=== PATIENT | male | born 1960 | race Caucasian/White ===

== ENCOUNTER 2016-12-24 05:38 | Observation (INO) | payer OTHER ==
--- NOTE | ~2016-12-24 | DS ---
Unit #: [id number] #: [id number] Patient: QUEENIE FAIR JR [id number] [address] [place], [place] [address] [id number] MR#: [id number] NAME: QUEENIE FAIR JR ROOM: 310 Age: 56 Sex: M Admission Date: 12/24/2016 : 1960 Discharge Date: 12/25/2016 Attending Physician: Angelika Bustamante M.D. Primary Care Physician: Zainab Tomas M.D. DISCHARGE SUMMARY DISCHARGE DIAGNOSES 1. Chest pain. 2. Hypertension. 3. Hyperlipidemia. 4. Dizziness. 5. Alcohol use. 6. Reformed tobaccoism. 7. Obesity with BMI greater than 40. 8. Possible obstructive sleep apnea. PROCEDURES PERFORMED The patient underwent an exercise Cardiolite stress test which showed no ST-T wave changes. In recovery the patient's blood pressure did drop to 68/30. Discussed with Dr. Chaudhary and the patient's stress test showed no ischemia. Radiology, two-dimensional echocardiogram showed left ventricle size normal. Mild concentric left ventricular hypertrophy. Ejection fraction is 60%, grade 1 diastolic dysfunction, RSVP less than 35 mmHg, mild tricuspid regurgitation. The patient was placed in Trendelenburg and given IV fluids. Blood pressure returned up to 112/75. The patient is a 56-year-old man who does not have a primary care provider or a director appointment. He reports that he last saw his primary care physician three years ago and was told that he did not have any issues. The patient reports that he has been having intermittent pain in his left shoulder and neck for the past two days and occasionally the pain would radiate to his midsternal chest. The pain was a 4 out of 5. The pain can occur with rest and activity. The patient also reported some mild dizziness. He denied diaphoresis, palpitations or shortness of breath. In the emergency department the patient was found to have a blood pressure of 178/104. His EKG was unremarkable. His troponin trend was negative. The patient underwent an exercise Cardiolite stress test which showed no ischemia. He did become hypotensive in recovery, likely secondary to dehydration. The patient was given IV fluids and his blood pressure improved. The patient had a two-dimensional echocardiogram done, which showed an ejection fraction of 60%. I have discussed this case with Dr. Chaudhary and he is agreeable. The patient is stable for discharge. Unit #: [id number] #: [id number] Patient: QUEENIE FAIR JR FOLLOWUP/INSTRUCTIONS 1. The patient is to establish with a primary care doctor and follow up in one to two weeks for possible sleep study. 2. The patient is to follow up with Dr. Bustamante in two to three weeks regarding his hypertension. 3. Healthy heart diet. 4. Activity as tolerated. 5. The patient may return to work on , 12/27/2016. No restrictions. 6. Discharge home. 7. Cardiac rehab to see. DISCHARGE MEDICATIONS 1. Norvasc 10 mg p.o. daily. 2. Lipitor 20 mg p.o. daily. 3. Lisinopril 10 mg p.o. b.i.d. 4. Aspirin 81 mg p.o. daily. Dictated by... Tova Camacho A.P.R.N. AM/pasquale TD: 12/25/2016 12:27 JOB #: [id number] DISCHARGE SUMMARY Page 1 of 1 X Tova Camacho APRN X DISCHARGE SUMMARY
--- NOTE | ~2016-12-24 | ST ---
Unit #: [id number] #: [id number] Patient: QUEENIE FAIR JR [id number] [address] [address] [id number] I MR#: [id number] NAME: QUEENIE FAIR JR : 1960 SEX: M STUDY DATE/TIME: 12/25/2016 UNIT: C3A PCU ROOM: 310 STUDY DESCRIPTION: Stress Cardiolite Attending Physician: Angelika Bustamante M.D. Primary Care Physician: Zainab Tomas M.D. CARDIOLOGY REPORT EXAM EKG, as well as nuclear part of the test. DESCRIPTION Patient's baseline heart rate is 68 BPM, blood pressure 143/96. Patient exercised for 9 minutes and 42 seconds, achieved peak heart rate of 117 BPM. Blood pressure is 170/92 but in recovery patient's blood pressure was low 70/38. Treated appropriately patient felt dizzy. The patient's baseline EKG showing normal sinus rhythm, normal EKG. During exercise recovery, acute PVCs but no ST-T shift. Patient also received 11.46 mCi of Cardiolite at rest and 56.0 mCi of Cardiolite during stress. Both sets of images were compared. There was fairly uniform uptake of radiotracer. No defect was noted. Gated SPECT scan done, which showed no ejection fraction of 59%. INTERPRETATION OF TEST 1. Good exercise tolerance. 2. Patient's blood pressure dropping during recovery, that is probably related to dehydration. 3. EKG part of the test negative for stress induced ischemia. 4. Nuclear part of the test negative for myocardial ischemia. 5. Gated SPECT scan shows normal LV size and function. Dictated by... Brandon Castorena/dani TD: 12/25/2016 12:16 JOB #: [id number] Unit #: [id number] #: [id number] Patient: QUEENIE FAIR JR CARDIOLOGY REPORT Page 1 of 1 X Jamal Chaudhary MD CARDIOLOGY REPORT
--- NOTE | ~2016-12-24 | CR72 ---
[facility] A Service of [facility] RADIOLOGY TEXT RESULTS PATIENT: QUEENIE FAIR JR LOCATION: [facility] : 60 UNIT #: [id number] AGE: [address]: JOSELIN BLEVINS MD SEX: M ORDER DR: [id number] [facility] [address] [place], [place] [address] [id number] E MR#: [id number] Acc #: [id number] NAME: QUEENIE FAIR : 1960 SEX: M STUDY DATE/TIME: 12/24/2016 6:20 UNIT: [facility] ROOM: STUDY DESCRIPTION: CR Chest Single View Portable Attending Physician: Noe Bazan M.D. Ordering Physician: Noe Bazan M.D. Primary Care Physician: Zainab Tomas M.D. MEDICAL IMAGING REPORT This report is preliminary unless electronic signature is present EXAM Chest x-ray, single-view portable. HISTORY Short of air, chest pain, arm pain for 2 days. COMMENT Single, frontal, portable view of the chest timed 6:20 on 12/24/2016 compared to a study from 10:27, 05/24/2008. Cardiac silhouette size is normal. No acute-appearing parenchymal infiltrate, acute congestive failure, pleural effusion, or pneumothorax. IMPRESSION No active disease. Dictated by... Yissel Landaverde M.D. THIS IS AN ELECTRONICALLY VERIFIED REPORT Yissel Landaverde M.D. at 12/24/2016 3:25 PM JOSE/mike TD: 12/24/2016 10:10 JOB #: [id number] MEDICAL IMAGING REPORT Page 1 of 1 COPY
--- NOTE | ~2016-12-24 | HP ---
Unit #: [id number] #: [id number] Patient: QUEENIE FAIR JR [id number] [address] [place], [place] [address] [id number] E MR#: [id number] NAME: QUEENIE FAIR ROOM: Age: 56 Sex: M Admission Date: 12/24/2016 : 1960 Attending Physician: Noe Bazan M.D. Primary Care Physician: Zainab Tomas M.D. HISTORY AND PHYSICAL CHIEF COMPLAINT Chest pain. 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 The patient reports that he last saw a primary care doctor three years ago and was told that he did not have any problem. He does report that three years ago he did undergo a colonoscopy which was essentially normal, only showing mild diverticulitis. The patient reports that he has been having intermittent pains for the past two days. Sometimes the pain starts in his left shoulder and will radiate to his left neck and to his mid sternal chest. He does rate this pain as a 4 out of 5. This pain can occur with rest and activity. The patient does report that he has been having some dizziness. The patient denies diaphoresis, palpitations or shortness of breath. In the emergency department, the patient was found to have a blood pressure of 178/104. His EKG was unremarkable and his initial troponin was negative. The patient is being admitted for further workup. PAST MEDICAL HISTORY None. PAST SURGICAL HISTORY 1. Vasectomy. 2. Colonoscopy there years ago which is reportedly normal, only showing mild diverticulitis. ALLERGIES No known allergies. HOME MEDICATIONS None. 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 He does report that he does take the stairs daily. He denies illicit drug abuse. The patient states that he quit smoking cigars approximately 12 years ago. He does endorse alcohol use on the weekends and states that he had 18 to 20 beers this past weekend. FAMILY HISTORY The patient reports that his mother had coronary artery disease and Unit #: [id number] #: [id number] Patient: QUEENIE FAIR JR ultimately had to undergo a valve surgery. He does endorse that his mother and father were smokers. His dad also had congestive heart failure. REVIEW OF SYSTEMS GENERAL: The patient is alert, awake, in no acute distress. VITAL SIGNS: Temperature 97.9, heart rate 65, respirations 14, blood pressure 166/92. He is oxygenating 100%. He is 280 pounds with a BMI of 40. HEENT: Head is atraumatic, normocephalic. Pupils equal, round, reactive. Extraocular movements are intact. No drainage from ears or nose. NECK: Supple. Trachea is midline. Normal carotid upstrokes. No JVD. CHEST: Lungs are clear to auscultation bilaterally. No wheezes, rales or rhonchi. CARDIOVASCULAR: S1, S2. Regular rate and rhythm. No murmurs, rubs or gallops appreciated. ABDOMEN: Soft, nontender, nondistended. Bowel sounds are present in all four quadrants. SKIN: Appears to be warm, dry and intact without any unusual rashes or lesions. EXTREMITIES: No clubbing, edema or cyanosis. NEUROLOGICAL: The patient is alert and oriented x4. He is pleasant and conversant. Cranial nerves II-XII appear to be intact. PSYCHIATRIC: No homicidal or suicidal ideations. DIAGNOSTIC STUDIES LABORATORY: White blood cells 5.6, hemoglobin 15.4, hematocrit 45.7, platelets 187, sodium 137, potassium 4.8, chloride 103, CO2 26, BUN 25, creatinine 1, glucose 103, point of care troponin less than 0.05. IMAGING: Chest x-ray shows no active disease. ASSESSMENT 1. Chest pain. 2. Hypertension. 3. Dizziness. 4. Alcohol use. 5. Family history of congestive heart failure and coronary artery disease. 6. Reformed tobaccoism. 7. Obesity with a body mass index of 40. 8. Possible obstructive sleep apnea. PLAN At this time, patient has been admitted to cardiology. Will trend cardiac enzymes and troponin q.6 hours x2. Will check a BMP, mag, CBC in the morning. Will check a lipid panel, TSH and hemoglobin A1c now. Will do a 2D echocardiogram to assess ejection fraction and look for any valvular abnormalities. Will plan to do an exercise Cardiolite stress test in the a.m. The patient will be started on aspirin 81 mg p.o. daily, Norvasc 10 mg p.o. daily, and lisinopril 10 mg p.o. daily. Parameters on the lisinopril will be to hold for heart rate less than 60 or for systolic blood pressure less than 100. The patient will be NPO after midnight. Will ask the patient's family to bring in socks and tennis shoes for the stress test in the morning. Will check orthostatics x1. Will check a urinalysis and urine drug screen. Will send a culture and sensitivity if indicated. Will ask cardiac rehab to see. Unit #: [id number] #: [id number] Patient: QUEENIE FAIR JR Dictated by Tova Camacho A.P.R.N. for Angelika Bustamante M.D. AM/df TD: 12/24/2016 12:44 JOB #: [id number] HISTORY AND PHYSICAL Page 1 of 1 X Tova Camacho APRN X HISTORY AND PHYSICAL
--- NOTE | ~2016-12-24 | EKG ---
PATIENT: QUEENIE FAIR UNIT #: [id number] Ventricular Rate: 64 BPM Atrial Rate: 64 BPM P-R Interval: 154 ms QRS Duration: 100 ms Q-T Interval: 390 ms QTC Calculation(Bezet): 402 ms P Prentiss: 18 degrees Calculated R Prentiss: 35 degrees Calculated T Prentiss: 26 degrees Diagnosis Line: Sinus rhythm with occasional Premature ventricular Diagnosis Line: complexes Diagnosis Line: Otherwise normal ECG Diagnosis Line: No previous ECGs available Diagnosis Line: Confirmed by ONI PAGE MD ([id number]) on 12/26/2016 Diagnosis Line: 9:43:54 AM INTERPRETING MD: KAYLEE BACON
--- NOTE | ~2016-12-24 | HP ---
Unit #: [id number] #: [id number] Patient: QUEENIE FAIR JR [id number] [address] [address] [id number] E MR#: [id number] NAME: QUEENIE FAIR ROOM: Age: 56 Sex: M Admission Date: 12/24/2016 : 1960 Attending Physician: Noe Bazan M.D. Primary Care Physician: Zainab Tomas M.D. HISTORY AND PHYSICAL ADDENDUM REVIEW OF SYSTEMS A ten point review of systems was completed and is considered otherwise negative except as indicated in the HPI. Dictated by Tova Camacho A.P.R.N. for Angelika Bustamante M.D. AM/kosta TD: 12/24/2016 13:10 JOB #: [id number] HISTORY AND PHYSICAL Page 1 of 1 X Tova Camacho APRN X HISTORY AND PHYSICAL
--- NOTE | ~2016-12-24 | TH ---
Unit #: [id number] #: [id number] Patient: QUEENIE FAIR JR [id number] [address] [address] [id number] I MR#: [id number] NAME: QUEENIE FAIR JR : 1960 SEX: M STUDY DATE/TIME: 12/25/2016 UNIT: C3A U ROOM: 310 STUDY DESCRIPTION: Cardiolite stress Attending Physician: Angelika Bustamante M.D. Primary Care Physician: Zainab Tomas M.D. CARDIOLOGY REPORT Result text under stress portion. Please see this order for result text. Dictated by... Brandon Castorena/dani TD: 12/25/2016 12:20 JOB #: [id number] CARDIOLOGY REPORT Page 1 of 1 X Jamal Chaudhary MD CARDIOLOGY REPORT
--- NOTE | ~2016-12-24 | BMI ---
[facility] DATE: 12/25/16 Patient: QUEENIE Cotter MANJULA MANZANARES Physician: PRATIBHA Address: [address] Room/Bed: [address] [place] [address], Zip: [place] [address] Admit Date: 12/24/16 Date of : [birth year] Height: 5 10 Weight: 264 120 HIGH BMI NOTE: ANTHROPOMETRICS: HT: 5'10" WT: 120 KG BMI: 38.0 INTERVENTION: 1. HEART HEALTHY DIET RECOMMENDATIONS: 1. CONTINUE CURRENT DIET IN ORDER TO PROMOTE GRADUAL WEIGHT LOSS TOWARDS A HEALTHY BMI RANGE. Respectfully, ESTEPHANIA HUERTAS RD, LD [facility] cc: client file
[~2016-12-24 05:38] MED LIST: TYLOX 5/500 CAP1 CAP PO; VICODIN 5/500 T1 TAB PO
[2016-12-24 06:24] LABS: BASOPHIL# 0.1 X10e3 (0-0.3); EOSINOPHIL# 0.2 X10e3 (0-0.7); EOSINOPHIL% 2.8 % (0.0-7.0); HEMATOCRIT 45.7 % (38.0-50.0); HEMOGLOBIN 15.4 gm/dL (13.0-16.0); LYMPHOCYTE# 1.7 X10e3 (1.0-3.5); LYMPHOCYTE% 29.4 % (17.0-45.0); MEAN CORPUSCULAR HEMOGLOBIN 30.9 PG (28-34); MEAN CORPUSCULAR HGB CONC 33.6 g/dL (30-36); MEAN PLATELET VOLUME 7.7 FL (6.5-11.5); MONOCYTE# 0.8 X10e3 (0-1.0); MONOCYTE% 13.5 % (3.0-12.0); NEUTROPHIL% 53.3 % (40-75); PLATELET COUNT 187 X10e3 (140-420); RED BLOOD COUNT 4.97 X10e (3.90-5.60); RED CELL DISTRIBUTION WIDTH 13.7 % (11.0-15.5); WHITE BLOOD COUNT 5.6 X10e3 (4.0-10.5)
[2016-12-24 06:25] LABS: DIFF IND NO
[2016-12-24 06:38] LABS: POC - CKMB 1.4 ng/mL (0.0-7.9); POC - TROPONIN <0.05 ng/mL (<=0.05)
[2016-12-24 06:53] LABS: BILIRUBIN, DIRECT 0.1 mg/dL (0.0-0.2); BILIRUBIN,INDIRECT 0.4 mg/dL (0.0-0.9); BILIRUBIN,TOTAL 0.5 mg/dL (0.2-2.0); CALCIUM SERUM 9.1 mg/dL (8.4-10.2); GLOM FILT RATE Estimated 83.8 mL/min (>60); POTASSIUM 4.8 mmol/L (3.5-5.1); PROTEIN TOTAL SERUM 6.7 g/dL (6.0-8.3)
[2016-12-24 07:59] LABS: POC - CKMB 1.3 ng/mL (0.0-7.9); POC - TROPONIN <0.05 ng/mL (<=0.05)
[2016-12-24] MEDS ORDERED: NO MEDICATIONS (10:06)
[2016-12-24 14:32] LABS: URINE SOURCE CLEAN CATCH
[2016-12-24 14:34] LABS: %MB 3.1 % (0.0-4.0); MB 2.6 ng/ml
[2016-12-24 14:42] LABS: URINE APPEARANCE CLEAR; URINE BILIRUBIN NEG (NEG); URINE BLOOD NEG (NEG); URINE COLOR YELLOW; URINE GLUCOSE NORM (NORM); URINE KETONE NEG (NEG); URINE LEUKOCYTE ESTERASE NEG (NEG); URINE NITRATE NEG (NEG); URINE PH 6.5 (5-8); URINE PROTEIN NEG (NEG); URINE SPECIFIC GRAVITY 1.015 (1.003-1.035); URINE UROBILINOGEN NORM (NORM)
[2016-12-24 14:46] LABS: CULTURE INDICATED? NO
[2016-12-24 16:38] LABS: AMPHETAMINE NEG (NEG); BARBITURATES NEG (NEG); BENZODIAZEPINES NEG (NEG); COCAINE NEG (NEG); MARIJUANA NEG (NEG); OPIATES NEG (NEG); TRICYCLIC ANTIDEPRESSANTS NEG (NEG); U METHADONE NEG (NEG)
[2016-12-24 20:41] LABS: %MB 2.4 % (0.0-4.0); MB 2.4 ng/ml
[2016-12-25 05:19] LABS: HEMATOCRIT 50.5 % (38.0-50.0); HEMOGLOBIN 16.6 gm/dL (13.0-16.0); MEAN CELL VOLUME 92.7 FL (83-96); MEAN CORPUSCULAR HEMOGLOBIN 30.4 PG (28-34); MEAN CORPUSCULAR HGB CONC 32.9 g/dL (30-36); MEAN PLATELET VOLUME 8.7 FL (6.5-11.5); RED BLOOD COUNT 5.46 X10e (3.90-5.60); RED CELL DISTRIBUTION WIDTH 13.8 % (11.0-15.5); WHITE BLOOD COUNT 7.1 X10e3 (4.0-10.5)
[2016-12-25 05:56] LABS: BUN/CREATININE RATIO 21.25; CALCIUM SERUM 9.2 mg/dL (8.4-10.2); CREATININE SERUM 0.8 mg/dL (0.6-1.4); GLOM FILT RATE Estimated 99.9 mL/min (>60); MAGNESIUM 2.2 mg/dL (1.6-3.0); POTASSIUM 4.4 mmol/L (3.5-5.1)
[2016-12-25] MEDS ORDERED: LIPITOR20 MG PO (12:36)
[2016-12-25] MEDS ORDERED: NORVASC10 MG PO (12:36)
[2016-12-25] MEDS ORDERED: LISINOPRIL10 MG PO (12:36)
[2016-12-25] MEDS ORDERED: ASPIRIN81 M2 PO (12:36)
== END 2016-12-25 13:35 | disposition home or self-care (01) | DRG 313 ==
LOC: CED 05:38 → CEDOF 11:44 → CED 12:03 → CEDOF 12:03 → C3A PCU 15:29 → CEDOF 15:29 → C3A PCU 15:29
PROVIDERS: Emergency Medicine; Internal Medicine Interventional Cardiology; Nurse Practitioner
DX: R07.9 Chest pain, unspecified (principal); I10 Essential (primary) hypertension; R42 Dizziness and giddiness; Z82.49 Family history of ischemic heart disease and other diseases of the circulatory system; E66.9 Obesity, unspecified; Z68.41 Body mass index [BMI] 40.0-44.9, adult; Z87.891 Personal history of nicotine dependence; I07.1 Rheumatic tricuspid insufficiency
CPT/HCPCS: 36415; 71010; 78452; 80048; 80061; 80076; 80307; 81003; 82550; 82553; 82947; 83036; 83735; 84443; 84484; 85025; 85027; 93005; 93017; 93306; 96372; 96374; 99285; A9500; G0378; J0360; J1650